=== PATIENT | male | born 1990 | race American Indian/Alaskan Native ===

== ENCOUNTER 2021-11-13 02:29 | Emergency (ER) | payer SELFPAY ==
[2021-11-13] MEDS ORDERED: levETIRAcetam 1000 MG/NS 0.75% 1,000 MG/100 ML BAG IV ONE (04:03)
--- NOTE | 2021-11-13 04:03 | Emergency Department Report ---
ED General Adult HPI - General Chief complaint: Syncope Stated complaint: SYNCOPE EPISODE Source: patient, EMS Mode of arrival: Stretcher Limitations: No Limitations - History of Present Illness Initial comments: Patient is a 31-year-old male with possible past medical history of seizure who presents to the emergency department after a syncopal or seizure episode. Patient states that he felt like he was can have a seizure and then had 1. Patient reports that he is does not currently take any medication for seizure but has had multiple seizures in the past. Apparently also possibly has sleep apnea but states he has not had a sleep study test checked for it. Patient's o xygen levels are low but states that he does not feel short of breath or chest pain at this time. Severity scale (0 -10): 0 - Related Data Previous Rx's Medication Instructions Recorded Last Taken Type levETIRAcetam [Keppra TAB] 500 mg PO BID 30 Days #60 tablet 11/13/21 Unknown Rx Allergies Allergy/AdvReac Type Severity Reaction Status Date / Time No Known Allergies Allergy Unverified 11/13/21 03:47 ED Review of Systems ROS: Stated complaint: SYNCOPE EPISODE Other details as noted in HPI Constitutional: denies: chills, fever Eyes: denies: eye pain, eye discharge, vision change ENT: denies: ear pain, throat pain Respiratory: denies: cough, shortness of breath, wheezing Cardiovascular: denies: chest pain, palpitations Endocrine: no symptoms reported Gastrointestinal: denies: abdominal pain, nausea, diarrhea Genitourinary: denies: urgency, dysuria Musculoskeletal: denies: back pain, joint swelling, arthralgia Skin: denies: rash, lesions Neurological: denies: headache, weakness, paresthesias Psychiatric: denies: anxiety, depression Hematological/Lymphatic: denies: easy bleeding, easy bruising ED Past Medical Hx - Past Medical History Hx Seizures: Yes (recently diagnosed (09/2021)) Hx Asthma: Yes - Social History Smoking Status: Unknown if ever smoked - Medications Home Medications: Home Medications Medication Instructions Recorded Confirmed Last Taken Type levETIRAcetam [Keppra TAB] 500 mg PO BID 30 Days #60 tablet 11/13/21 Unknown Rx ED Physical Exam - General Limitations: No Limitations General appearance: alert, in distress - Head Head exam: Present: atraumatic, normocephalic - Eye Eye exam: Present: normal appearance - ENT ENT exam: Present: mucous membranes dry - Neck Neck exam: Present: normal inspection - Respiratory Respiratory exam: Present: normal lung sounds bilaterally. Absent: respiratory distress - Cardiovascular Cardiovascular Exam: Present: tachycardia. Absent: systolic murmur, diastolic murmur, rubs, gallop - GI/Abdominal GI/Abdominal exam: Present: soft, normal bowel sounds. Absent: distended, tenderness - Rectal Rectal exam: Present: deferred - Extremities Exam Extremities exam: Present: normal inspection, pedal edema - Back Exam Back exam: Present: normal inspection - Neurological Exam Neurological exam: Present: alert, oriented X3 - Psychiatric Psychiatric exam: Present: normal affect, normal mood - Skin Skin exam: Present: warm, dry, intact, normal color. Absent: rash ED Course Vital Signs 11/13/21 11/13/21 11/13/21 02:39 02:44 02:46 Temperature 98.6 F Pulse Rate 94 H 107 H 111 H Respiratory 15 20 24 Rate Blood Pressure 146/89 146/89 Blood Pressure 138/77 [Right] O2 Sat by Pulse 90 95 94 Oximetry 11/13/21 11/13/21 11/13/21 02:51 03:00 03:16 Temperature Pulse Rate 103 H 97 H Respiratory 20 34 H 35 H Rate Blood Pressure 138/77 117/76 Blood Pressure [Right] O2 Sat by Pulse 95 93 92 Oximetry 11/13/21 11/13/21 11/13/21 03:30 03:46 04:00 Temperature Pulse Rate 107 H 94 H 91 H Respiratory 14 17 29 H Rate Blood Pressure 117/76 150/75 150/75 Blood Pressure [Right] O2 Sat by Pulse 98 98 91 Oximetry 11/13/21 04:16 Temperature Pulse Rate 95 H Respiratory 24 Rate Blood Pressure 117/76 Blood Pressure [Right] O2 Sat by Pulse 96 Oximetry - Reevaluation(s) Reevaluation #1: 11/13/21 05:35 CT imaging is negative. Patient likely to be discharged home with Keppra prescriptions. On reassessment patient is still fairly sleepy. Patient may need to wake up a little bit more prior to discharge. Will likely sign out to oncoming provider. ED Medical Decision Making - Lab Data Result diagrams: 11/13/21 03:47 11/13/21 03:47 - Radiology Data Radiology results: report reviewed, image reviewed - Medical Decision Making Patient is a 31-year-old male presenting to the emergency department complaint of possible seizure. Also on the differential includes syncopal episode. Patient states he has had multiple episodes of seizures but is not currently on meds so we will give a dose of Keppra obtain imaging of the brain as he has not previously had any imaging. Given his elevated heart rate and low oxygen levels a CTA of the chest was also obtained to rule out pulmonary embolism and syncope. Pending work-up patient may require admission if her oxygen levels remain low. Critical care attestation.: If time is entered above; I have spent that time in minutes in the direct care of this critically ill patient, excluding procedure time. ED Disposition Clinical Impression: Seizure, Sleep apnea Condition: Stable Instructions: Sleep Apnea, Seizure, Adult, [id number] Prescriptions: levETIRAcetam [Keppra TAB] 500 mg PO BID 30 Days #60 tablet Referrals: PRIMARY CARE, [Primary Care Provider] - 3-5 Days LUIS MANUEL NUNO MD [Staff Physician] - 3-5 Days MARIEL BE MD [Referring] - 3-5 Days
--- NOTE | 2021-11-13 04:04 | XRay Report ---
CHEST 1 VIEW INDICATION / CLINICAL INFORMATION: dyspnea. COMPARISON: None available. FINDINGS: SUPPORT DEVICES: None. HEART / MEDIASTINUM: Borderline to mild cardiomegaly. LUNGS / PLEURA: Lungs are clear for degree of inspiration and technique utilized. BONES: No significant osseous abnormality. ADDITIONAL FINDINGS: No significant additional findings. IMPRESSION: 1. No active cardiopulmonary disease. Signer Name: Eleno Sosa II, MD Signed: 11/13/2021 3:59 AM Workstation Name: [id number]
[2021-11-13 04:06] LABS: Basophils % (Auto) 0.5 % (0.0-1.8); Eosinophils # (Auto) 0.1 K/mm3 (0.0-0.4); Eosinophils % (Auto) 1.6 % (0.0-4.3); Hematocrit 49.8 % (35.5-45.6); Hemoglobin 15.9 gm/dl (11.8-15.2); Lymphocytes # (Auto) 1.7 K/mm3 (1.2-5.4); Lymphocytes % (Auto) 21.7 % (13.4-35.0); Mean Corpuscular HGB Conc 32 % (32-34); Mean Corpuscular Volume 86 fl (84-94); Monocytes # (Auto) 0.6 K/mm3 (0.0-0.8); Monocytes % (Auto) 7.9 % (0.0-7.3); Platelet Count 319 K/mm3 (140-440); Red Blood Count 5.81 M/mm3 (3.65-5.03); Red Cell Distribution Width 15.2 % (13.2-15.2)
[2021-11-13 04:21] LABS: Alanine Aminotransferase 27 units/L (7-56); BUN/Creatinine Ratio 10; Blood Urea Nitrogen 10 mg/dL (9-20); Calcium 9.8 mg/dL (8.4-10.2); Hemolysis Index 12
--- NOTE | 2021-11-13 05:26 | Cat Scan Report ---
CTA CHEST WITH CONTRAST INDICATION / CLINICAL INFORMATION: eval for PE; hypoxia; tachycardia. TECHNIQUE: Axial CT images were obtained through the chest after injection of IV contrast. 3 plane GA P and/or 3D reconstructions were produced. All CT scans at this location are performed using CT dose reduction for ALARA by means of automated exposure control. COMPARISON: CT head same date FINDINGS: VASCULAR FINDINGS: PULMONARY ARTERY: Pulmonary artery is normal in size. No filling defects are present compatible with pulmonary artery embolus.. THORACIC AORTA: No significant abnormality. CORONARY ARTERY CALCIFICATION: Absent -- None. NONVASCULAR FINDINGS: LOWER NECK: Soft tissues and musculature of the lower neck demonstrate no significant abnormality. Th e thyroid demonstrates no significant abnormality. HEART: No significant abnormality. MEDIASTINUM / MARY: No significant abnormality. ESOPHAGUS: No significant abnormality. LYMPH NODES: No adenopathy within the axilla, mediastinum, or mary. LUNGS: No acute air space or interstitial disease. PLEURA: No pleural effusion. No pneumothorax. THORACIC SOFT TISSUES: No significant abnormality of the chest wall or upper thoracic musculature. BONES: No significant skeletal abnormalities. ADDITIONAL CHEST FINDINGS: None. UPPER ABDOMEN: No acute findings within the upper abdomen. IMPRESSION: 1. No CT evidence for pulmonary embolism. 2. No acute intrathoracic findings. Signer Name: Eleno Sosa II, MD Signed: 11/13/2021 5:21 AM Workstation Name: [id number]
--- NOTE | 2021-11-13 05:26 | Cat Scan Report ---
CT HEAD WITHOUT CONTRAST INDICATION / CLINICAL INFORMATION: seizure. TECHNIQUE: CT head was performed without administration of intravenous contrast. All CT scans at this location are performed using CT dose reduction for ALARA by means of automated exposure control. COMPARISON: None available. FINDINGS: CEREBRAL HEMISPHERES: There is no evidence of large territorial infarction or significant abnormality of shah-white matter differentiation. Ventricles within normal limits. No midline shift. Basal ciste rns patent. HEMORRHAGE: None. CEREBELLUM / BRAINSTEM: No significant abnormality. ORBITS: No significant abnormality. SOFT TISSUES: No significant abnormality. SKULL: No significant abnormality. PARANASAL SINUSES / MASTOID AIR CELLS: Normal as visualized. ADDITIONAL FINDINGS: None. IMPRESSION: 1. No acute intracranial abnormality. Signer Name: Eleno Sosa II, MD Signed: 11/13/2021 5:21 AM Workstation Name: [id number]
[2021-11-13 06:12] VITALS: BP 150/75
--- NOTE | 2021-11-13 10:08 | Electrocardiograph Report ---
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
== END 2021-11-13 07:56 | disposition home or self-care (01) ==
LOC: ED 02:29
DX: R56.9 Unspecified convulsions (principal); G47.30 Sleep apnea, unspecified; J45.909 Unspecified asthma, uncomplicated
CPT/HCPCS: 36415; 70450; 71045; 71275; 80053; 83735; 83880; 84484; 85025; 85379; 93005; 96374; 99285; J1953; Q9967

== ENCOUNTER 2021-12-27 10:29 | Emergency (ER) | payer SELFPAY ==
[2021-12-27] MEDS ORDERED: MORPHINE 4 MG/1 ML INJ IV ONE (10:36)
[2021-12-27] MEDS ORDERED: ONDANSETRON 4 MG/2 ML INJ IV ONE (10:37)
[2021-12-27 11:51] LABS: Basophils % (Auto) 0.7 % (0.0-1.8); Eosinophils # (Auto) 0.1 K/mm3 (0.0-0.4); Eosinophils % (Auto) 0.9 % (0.0-4.3); Hematocrit 51.5 % (35.5-45.6); Hemoglobin 16.7 gm/dl (11.8-15.2); Lymphocytes # (Auto) 1.4 K/mm3 (1.2-5.4); Mean Corpuscular HGB Conc 32 % (32-34); Mean Corpuscular Volume 85 fl (84-94); Monocytes # (Auto) 0.2 K/mm3 (0.0-0.8); Monocytes % (Auto) 3.5 % (0.0-7.3); Platelet Count 268 K/mm3 (140-440); Red Cell Distribution Width 15.9 % (13.2-15.2)
--- NOTE | 2021-12-27 11:54 | Cat Scan Report ---
CTA CHEST WITH CONTRAST INDICATION / CLINICAL INFORMATION: Possible AAA. TECHNIQUE: Axial CT images were obtained through the chest after injection of IV contrast. 3 plane MA P and/or 3D reconstructions were produced. All CT scans at this location are performed using CT dose reduction for ALARA by means of automated exposure control. COMPARISON: CTA chest 11/13/2021 FINDINGS: PULMONARY EMBOLUS: Not well evaluated due to the phase of contrast. THORACIC AORTA: No significant abnormality. HEART: No significant abnormality. CORONARY ARTERY CALCIFICATION: Absent -- None. MEDIASTINUM / MARY: No significant abnormality. PLEURA: No pleural effusion. No pneumothorax. LUNGS: No acute air space or interstitial disease. Mild bibasilar subsegmental atelectasis. ADDITIONAL FINDINGS: None. UPPER ABDOMEN: No acute findings. SKELETAL STRUCTURES: No significant osseous abnormality. IMPRESSION: 1. No thoracic aortic abnormality. 2. Please note, the abdominal aorta is not visualized on this CTA of the chest. Signer Name: Favio Granados MD Signed: 12/27/2021 11:50 AM Workstation Name: [email or web address]
[2021-12-27] MEDS ORDERED: hydrALAZINE 20 MG/1 ML INJ IV ONE (12:19)
[2021-12-27 12:28] LABS: Alanine Aminotransferase 24 units/L (7-56); Albumin 4.5 g/dL (3.9-5); BUN/Creatinine Ratio 8; Blood Urea Nitrogen 8 mg/dL (9-20); Calcium 9.5 mg/dL (8.4-10.2); Hemolysis Index 15
[2021-12-27] MEDS ORDERED: SODIUM CHLORIDE 0.9% 1000 ML 1,000 ML IV ONE (14:48)
[2021-12-27] MEDS ORDERED: HYDROmorphone 1 MG/1 ML INJ IV ONE (14:48)
--- NOTE | 2021-12-27 14:49 | Emergency Department Report ---
<CRAMEYA DANIELLE - Last Filed: 12/27/21 21:56> ED Chest Pain HPI - General Chief Complaint: Chest Pain Stated Complaint: ABD PAIN Time Seen by Provider: 12/27/21 10:34 - Related Data Previous Rx's Medication Instructions Recorded Last Taken Type Valsartan [Diovan] 160 mg PO BID 30 Days #60 tablet 12/27/21 Unknown Rx amLODIPine 10 mg PO DAILY #30 tab 12/27/21 Unknown Rx carvediloL [Coreg] 12.5 mg PO BID #60 tablet 12/27/21 Unknown Rx levETIRAcetam [Keppra TAB] 750 mg PO BID 30 Days #60 tablet 12/27/21 Unknown Rx Allergies Allergy/AdvReac Type Severity Reaction Status Date / Time No Known Allergies Allergy Unverified 11/13/21 03:47 ED Past Medical Hx - Medications Home Medications: Home Medications Medication Instructions Recorded Confirmed Last Taken Type Valsartan [Diovan] 160 mg PO BID 30 Days #60 tablet 12/27/21 Unknown Rx amLODIPine 10 mg PO DAILY #30 tab 12/27/21 Unknown Rx carvediloL [Coreg] 12.5 mg PO BID #60 tablet 12/27/21 Unknown Rx levETIRAcetam [Keppra TAB] 750 mg PO BID 30 Days #60 tablet 12/27/21 Unknown Rx ED Course - Reevaluation(s) Reevaluation #1: 12/27/21 15:34 CT scan chest abdomen pelvis reviewed and appreciated. Blood pressure vital signs, laboratory studies reviewed and appreciated. Endorsed to hospital physician, Dr. Le for further evaluation and management. ED Medical Decision Making - Lab Data Result diagrams: 12/27/21 11:22 12/27/21 11:22 Vital Signs 12/27/21 12/27/21 12/27/21 10:38 10:46 10:52 Pulse Rate 100 H 99 H 97 H Respiratory 22 15 18 Rate Blood Pressure 224/138 Blood Pressure 214/137 [Left] O2 Sat by Pulse 96 94 97 Oximetry 12/27/21 12/27/21 12/27/21 11:00 11:15 11:42 Pulse Rate 105 H 99 H Respiratory 31 H 11 L Rate Blood Pressure 224/138 224/138 224/138 Blood Pressure [Left] O2 Sat by Pulse 82 L 87 Oximetry 12/27/21 12/27/21 12/27/21 11:46 12:00 12:16 Pulse Rate 102 H 105 H 100 H Respiratory 19 21 27 H Rate Blood Pressure 224/138 224/138 224/138 Blood Pressure [Left] O2 Sat by Pulse 93 85 92 Oximetry 12/27/21 12/27/21 12/27/21 12:30 12:46 13:00 Pulse Rate 104 H 111 H 119 H Respiratory 27 H 33 H 30 H Rate Blood Pressure 224/138 224/138 224/138 Blood Pressure [Left] O2 Sat by Pulse 95 92 93 Oximetry 12/27/21 12/27/21 12/27/21 13:16 13:30 13:46 Pulse Rate 123 H 127 H Respiratory 35 H 28 H Rate Blood Pressure 224/138 192/129 192/129 Blood Pressure [Left] O2 Sat by Pulse 94 94 87 Oximetry 12/27/21 12/27/21 12/27/21 14:00 14:28 14:30 Pulse Rate 115 H 112 H Respiratory 19 28 H Rate Blood Pressure 192/129 165/99 175/103 Blood Pressure [Left] O2 Sat by Pulse 88 97 95 Oximetry 12/27/21 14:46 Pulse Rate 113 H Respiratory 35 H Rate Blood Pressure 152/81 Blood Pressure [Left] O2 Sat by Pulse 96 Oximetry Lab Results 12/27/21 12/27/21 Range/Units 11:22 11:22 WBC 6.8 (4.5-11.0) K/mm3 RBC 6.10 H (3.65-5.03) M/mm3 Hgb 16.7 H (11.8-15.2) gm/dl Hct 51.5 H (35.5-45.6) % MCV 85 (84-94) fl MCH 27 L (28-32) pg MCHC 32 (32-34) % RDW 15.9 H (13.2-15.2) % Plt Count 268 (140-440) K/mm3 Lymph % (Auto) 20.0 (13.4-35.0) % Cloud % (Auto) 3.5 (0.0-7.3) % Eos % (Auto) 0.9 (0.0-4.3) % Baso % (Auto) 0.7 (0.0-1.8) % Lymph # (Auto) 1.4 (1.2-5.4) K/mm3 Cloud # (Auto) 0.2 (0.0-0.8) K/mm3 Eos # (Auto) 0.1 (0.0-0.4) K/mm3 Baso # (Auto) 0.0 (0.0-0.1) K/mm3 Seg Neutrophils % 74.9 H (40.0-70.0) % Seg Neutrophils # 5.1 (1.8-7.7) K/mm3 Sodium 142 (137-145) mmol/L Potassium 4.4 (3.6-5.0) mmol/L Chloride 102.8 (98-107) mmol/L Carbon Dioxide 26 (22-30) mmol/L Anion Gap 18 mmol/L BUN 8 L (9-20) mg/dL Creatinine 1.0 (0.8-1.3) mg/dL Estimated GFR > 60 ml/min BUN/Creatinine Ratio 8 % Glucose 118 H (75-100) mg/dL Calcium 9.5 (8.4-10.2) mg/dL Total Bilirubin 0.20 (0.1-1.2) mg/dL AST 17 (5-40) units/L ALT 24 (7-56) units/L Alkaline Phosphatase 100 (35-129) units/L Troponin T < 0.010 (0.00-0.029) ng/mL Total Protein 7.2 (6.3-8.2) g/dL Albumin 4.5 (3.9-5) g/dL Albumin/Globulin Ratio 1.7 % - Radiology Data Radiology results: pending, report reviewed, image reviewed CTA CHEST WITH CONTRAST INDICATION / CLINICAL INFORMATION: Possible AAA. TECHNIQUE: Axial CT images were obtained through the chest after injection of IV contrast. 3 plane MIP and/or 3D reconstructions were produced. All CT scans at this location are performed using CT dose reduction for ALARA by means of automated exposure control. COMPARISON: CTA chest 11/13/2021 FINDINGS: PULMONARY EMBOLUS: Not well evaluated due to the phase of contrast. THORACIC AORTA: No significant abnormality. HEART: No significant abnormality. CORONARY ARTERY CALCIFICATION: Absent -- None. MEDIASTINUM / MARY: No significant abnormality. PLEURA: No pleural effusion. No pneumothorax. LUNGS: No acute air space or interstitial disease. Mild bibasilar subsegmental atelectasis. ADDITIONAL FINDINGS: None. UPPER ABDOMEN: No acute findings. SKELETAL STRUCTURES: No significant osseous abnormality. IMPRESSION: 1. No thoracic aortic abnormality. 2. Please note, the abdominal aorta is not visualized on this CTA of the chest. Signer Name: Favio Granados MD Signed: 12/27/2021 10:50 AM Workstation Name: [id number] CTA ABDOMEN AND PELVIS WITHOUT AND WITH IV CONTRAST INDICATION / CLINICAL INFORMATION: Abdominal pain, possible AAA. TECHNIQUE: Axial CT images were obtained through the abdomen and pelvis before and after after injection of IV c ontrast. 3 plane MIP / 3D reconstructions were produced. All CT scans at this location are performed using CT dose reduction for ALARA by means of automated exposure control. COMPARISON: None available. FINDINGS: The abdominal aorta is normal in size and appearance. There is narrowing of the proximal celiac artery which could represent some [id number] narrowing. The celiac is patent. SMA is patent. Renal arteries and ROBBIE are patent. Iliac arteries appear normal. Urinary bladder wall thickening. Skeletal Structures: No significant abnormality. IMPRESSION: 1. No abdominal aortic aneurysm. Possible mild narrowing of the proximal celiac artery. Signer Name: John Holman MD Signed: 12/27/2021 1:51 PM Workstation Name: [id number] ED Disposition Clinical Impression: Hypertensive urgency, Acute chest pain, Acute abdominal pain Disposition: 09 ADMITTED INPATIENT Is pt being admited?: Yes Does the pt Need Aspirin: Yes Condition: Good Instructions: Chest Pain (ED) Prescriptions: amLODIPine 10 mg PO DAILY #30 tab carvediloL [Coreg] 12.5 mg PO BID #60 tablet Valsartan [Diovan] 160 mg PO BID 30 Days #60 tablet levETIRAcetam [Keppra TAB] 750 mg PO BID 30 Days #60 tablet Referrals: TAMARA BREWER MD [Primary Care Provider] - 3-5 Days <NATALIA TORRES - Last Filed: 12/29/21 21:56> ED Chest Pain HPI - General Source: patient, EMS Mode of arrival: Stretcher Limitations: No Limitations - History of Present Illness Initial Comments: Patient is a 31-year-old male presenting to ED with complaint of sharp chest pain radiating to his abdomen and back beginning this morning at 6 AM. States he was seen at an emergency department in [place] back in May where it was recommended that he be evaluated for possible AAA however he signed out AMA. Blood pressure 238/150. Severity scale (0 -10): 3 Heart Score - HEART Score History: Slightly suspicious EKG: Non-specific Age: < 45 Risk factors: 1-2 risk factors Troponin: < normal limit HEART Score: 2 - EKG Read Time Time EKG Completed: 13:00 (Please note times are inaccurate. Unable to locate EKG.) EKG Read Time: 13:05 - Critical Actions Critical Actions: 0-3 pts:0.9-1.7%risk of adverse cardiac event.Candidate for discharge ED Review of Systems ROS: Stated complaint: ABD PAIN Other details as noted in HPI Constitutional: denies: chills, fever Respiratory: denies: cough, shortness of breath, wheezing Cardiovascular: chest pain Endocrine: no symptoms reported Gastrointestinal: abdominal pain Musculoskeletal: denies: back pain, joint swelling, arthralgia Skin: denies: rash, lesions Neurological: denies: headache, weakness, paresthesias ED Past Medical Hx - Past Medical History Hx Seizures: Yes (recently diagnosed (09/2021)) Hx Asthma: Yes - Social History Smoking Status: Never Smoker Substance Use Type: None ED Physical Exam - General Limitations: No Limitations General appearance: alert, in no apparent distress, obese - Head Head exam: Present: atraumatic, normocephalic - Respiratory Respiratory exam: Present: normal lung sounds bilaterally. Absent: respiratory distress - Cardiovascular Cardiovascular Exam: Present: regular rate, normal rhythm, normal heart sounds - GI/Abdominal GI/Abdominal exam: Present: soft, tenderness (Mild epigastric tenderness). Absent: distended, organomegaly, mass, bruit, pulsatile mass - Rectal Rectal exam: Present: deferred - Neurological Exam Neurological exam: Present: alert, oriented X3 - Psychiatric Psychiatric exam: Present: normal affect, normal mood - Skin Skin exam: Present: warm, dry, intact, normal color ED Course Vital Signs 12/27/21 12/27/21 12/27/21 10:38 10:46 10:52 Pulse Rate 100 H 99 H 97 H Respiratory 22 15 18 Rate Blood Pressure 224/138 Blood Pressure 214/137 [Left] O2 Sat by Pulse 96 94 97 Oximetry 12/27/21 12/27/21 12/27/21 11:00 11:15 11:42 Pulse Rate 105 H 99 H Respiratory 31 H 11 L Rate Blood Pressure 224/138 224/138 224/138 Blood Pressure [Left] O2 Sat by Pulse 82 L 87 Oximetry 12/27/21 12/27/21 12/27/21 11:46 12:00 12:16 Pulse Rate 102 H 105 H 100 H Respiratory 19 21 27 H Rate Blood Pressure 224/138 224/138 224/138 Blood Pressure [Left] O2 Sat by Pulse 93 85 92 Oximetry 12/27/21 12/27/21 12/27/21 12:30 12:46 13:00 Pulse Rate 104 H 111 H 119 H Respiratory 27 H 33 H 30 H Rate Blood Pressure 224/138 224/138 224/138 Blood Pressure [Left] O2 Sat by Pulse 95 92 93 Oximetry 12/27/21 12/27/21 12/27/21 13:16 13:30 13:46 Pulse Rate 123 H 127 H Respiratory 35 H 28 H Rate Blood Pressure 224/138 192/129 192/129 Blood Pressure [Left] O2 Sat by Pulse 94 94 87 Oximetry 12/27/21 12/27/21 12/27/21 14:00 14:28 14:30 Pulse Rate 115 H 112 H Respiratory 19 28 H Rate Blood Pressure 192/129 165/99 175/103 Blood Pressure [Left] O2 Sat by Pulse 88 97 95 Oximetry 12/27/21 12/27/21 12/27/21 14:46 15:00 15:16 Pulse Rate 113 H 113 H 112 H Respiratory 35 H 20 28 H Rate Blood Pressure 152/81 125/83 141/81 Blood Pressure [Left] O2 Sat by Pulse 96 95 93 Oximetry 12/27/21 12/27/21 12/27/21 15:30 15:46 16:00 Pulse Rate 110 H 112 H 112 H Respiratory 25 H 22 24 Rate Blood Pressure 150/68 136/70 137/73 Blood Pressure [Left] O2 Sat by Pulse 93 92 91 Oximetry 12/27/21 12/27/21 12/27/21 16:16 16:30 16:46 Pulse Rate 111 H 113 H 111 H Respiratory 26 H 25 H 26 H Rate Blood Pressure 134/94 143/95 145/101 Blood Pressure [Left] O2 Sat by Pulse 89 93 92 Oximetry 12/27/21 12/27/21 12/27/21 17:00 17:16 17:30 Pulse Rate 108 H 111 H 131 H Respiratory 18 19 28 H Rate Blood Pressure 129/88 117/55 111/78 Blood Pressure [Left] O2 Sat by Pulse 94 94 93 Oximetry 12/27/21 18:20 Pulse Rate 114 H Respiratory 17 Rate Blood Pressure Blood Pressure 153/94 [Left] O2 Sat by Pulse 97 Oximetry ED Medical Decision Making - Lab Data Result diagrams: 12/27/21 11:22 12/27/21 11:22 - EKG Data -: EKG Interpreted by Pr EKG shows normal: sinus rhythm, axis, intervals, QRS complexes, ST-T waves - Medical Decision Making CBC, CMP and troponin unremarkable. Patient given IV hydralazine and labetalol. Blood pressure currently 150 systolic. He still remains tachycardic in the 110s. IV fluids ordered. Morphine and Dilaudid given for pain. CTA chest negative for aneurysm or dissection. CTA abdomen read pending. Critical care attestation.: If time is entered above; I have spent that time in minutes in the direct care of this critically ill patient, excluding procedure time.
--- NOTE | 2021-12-27 14:56 | Cat Scan Report ---
CTA ABDOMEN AND PELVIS WITHOUT AND WITH IV CONTRAST INDICATION / CLINICAL INFORMATION: Abdominal pain, possible AAA. TECHNIQUE: Axial CT images were obtained through the abdomen and pelvis before and after after injection of IV c ontrast. 3 plane MIP / 3D reconstructions were produced. All CT scans at this location are performed using CT dose reduction for ALARA by means of automated exposure control. COMPARISON: None available. FINDINGS: The abdominal aorta is normal in size and appearance. There is narrowing of the proximal celiac arter y which could represent some [id number] narrowing. The celiac is patent. SMA is patent. Renal a rteries and ROBBIE are patent. Iliac arteries appear normal. Urinary bladder wall thickening. Skeletal Structures: No significant abnormality. IMPRESSION: 1. No abdominal aortic aneurysm. Possible mild narrowing of the proximal celiac artery. Signer Name: John Holman MD Signed: 12/27/2021 2:51 PM Workstation Name: [id number]
--- NOTE | 2021-12-27 18:00 | Event Note ---
Date: 12/27/21 BP controlled No chest pain Also sleep apnea Needs compliance with medicines Extensive counselling done regarding compliance and F/u with pcp and [facility] Valsartan 160 mg bid Coreg 12.5 mg po bid Amlodipine 10 mg po qd Keppra 750 mg po bid
[2021-12-27 18:20] VITALS: BP 153/94
--- NOTE | 2021-12-30 09:46 | Electrocardiograph Report ---
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
== END 2021-12-27 18:20 | disposition admitted as inpatient to this hospital (09) ==
LOC: ED 10:29
DX: I16.0 Hypertensive urgency (principal); R07.9 Chest pain, unspecified; R10.9 Unspecified abdominal pain
CPT/HCPCS: 36415; 71275; 74174; 80053; 84484; 85025; 93005; 96361; 96374; 96375; 99284; J0360; J1170; J2270; J2405; J3490; J7030; Q9967

== ENCOUNTER 2022-01-02 20:28 | Inpatient (IN) | payer SELFPAY ==
[2022-01-02] MEDS ORDERED: SODIUM CHLORIDE 0.9% 1000 ML 1,000 ML IV ONE (21:17)
[2022-01-02] MEDS ORDERED: ONDANSETRON 4 MG/2 ML INJ IV ONE (21:17)
[2022-01-02] MEDS ORDERED: MORPHINE 4 MG/1 ML INJ IV ONE (21:17)
--- NOTE | 2022-01-02 21:28 | Emergency Department Report ---
ED General Adult HPI - General Chief complaint: Abdominal Pain Stated complaint: ABD PAIN PUI?: No Time Seen by Provider: 01/02/22 21:10 Source: patient Mode of arrival: Stretcher Limitations: No Limitations - History of Present Illness Initial comments: 31 YEAR OLD OBESE MALE WITH MEDICAL HISTORY OF SEIZURE AND HYPERTENSION CAME IN TODAY WITH CONCERN OF ABDOMINAL PAIN PREDOMINATLY AT EPIGASTIC AND ALSO RIGHT UPPER QUADRANT ALONG WITH NAUSEA. STATES IT JUST STARTED TODAY AND NOTHING MAKES IT BETTER/WORSE. DENIES ANY OTHER ASSOCIATED SYMPTOMS. STATES HE WAS JUST STARTED ON BLOOD PRESSURE MEDICATION ABOUT 6 DAYS AGO BUT HAS NOT HAD THE TIME TO PICK THEM UP YET. PATIENT DENIES FEVER, CHILL, NIGHT SWEATS, DIZZINESS, LIGHTHEADED, BLURRY VISION, HEADACHE, EAR PAIN, TINNITUS, RHINORRHEA, SORE THROAT, LOSS OF TASTE/SMELL, CHEST PAIN, PALPITATION, DYSPNEA, COUGH, DIARRHEA, CONSTIPATION, DYSURIA, MYALGIA, ARTHRALGIA, NEW RASH/LESION, AND HEAT OR COLD INTOLERANCE. - Related Data Previous Rx's Medication Instructions Recorded Last Taken Type Valsartan [Diovan] 160 mg PO BID 30 Days #60 tablet 12/27/21 Unknown Rx amLODIPine 10 mg PO DAILY #30 tab 12/27/21 Unknown Rx carvediloL [Coreg] 12.5 mg PO BID #60 tablet 12/27/21 Unknown Rx levETIRAcetam [Keppra TAB] 750 mg PO BID 30 Days #60 tablet 12/27/21 Unknown Rx Allergies Allergy/AdvReac Type Severity Reaction Status Date / Time No Known Allergies Allergy Unverified 11/13/21 03:47 ED Review of Systems ROS: Stated complaint: ABD PAIN Other details as noted in HPI Comment: All other systems reviewed and negative Constitutional: no symptoms reported, see HPI Eyes: as per HPI ENT: as per HPI Respiratory: no symptoms reported Cardiovascular: as per HPI Endocrine: no symptoms reported, see HPI Gastrointestinal: abdominal pain, nausea, vomiting. denies: diarrhea, constipation, hematemesis, melena, hematochezia Musculoskeletal: as per HPI Skin: as per HPI Neurological: as per HPI Psychiatric: as per HPI Hematological/Lymphatic: as per HPI ED Past Medical Hx - Past Medical History Previous Medical History?: Yes Hx Hypertension: Yes Hx Seizures: Yes (recently diagnosed (09/2021)) Hx Asthma: Yes Additional medical history: Sleep Apnea. Morbid Obesity - Surgical History Past Surgical History?: No - Social History Smoking Status: Current Every Day Smoker Substance Use Type: None - Medications Home Medications: Home Medications Medication Instructions Recorded Confirmed Last Taken Type Valsartan [Diovan] 160 mg PO BID 30 Days #60 tablet 12/27/21 Unknown Rx amLODIPine 10 mg PO DAILY #30 tab 12/27/21 Unknown Rx carvediloL [Coreg] 12.5 mg PO BID #60 tablet 12/27/21 Unknown Rx levETIRAcetam [Keppra TAB] 750 mg PO BID 30 Days #60 tablet 12/27/21 Unknown Rx ED Physical Exam - General Limitations: No Limitations General appearance: alert, in distress (MILD; APPEARS NAUSEATED) - Head Head exam: Present: atraumatic, normocephalic, normal inspection - Eye Eye exam: Present: normal appearance, PERRL, EOMI Pupils: Present: normal accommodation - ENT ENT exam: Present: normal exam - Neck Neck exam: Present: normal inspection, full ROM - Respiratory Respiratory exam: Present: normal lung sounds bilaterally - Cardiovascular Cardiovascular Exam: Present: regular rate, normal rhythm, normal heart sounds - GI/Abdominal GI/Abdominal exam: Present: soft (OBESE), normal bowel sounds. Absent: tenderness, guarding, rebound, rigid - Extremities Exam Extremities exam: Present: normal inspection, full ROM, normal capillary refill - Back Exam Back exam: Present: normal inspection, full ROM - Neurological Exam Neurological exam: Present: alert, oriented X3, CN II-XII intact - Psychiatric Psychiatric exam: Present: normal affect, normal mood - Skin Skin exam: Present: normal color ED Course Vital Signs 01/02/22 01/02/22 01/02/22 20:29 21:54 23:55 Temperature 98 F Pulse Rate 96 H 90 90 Respiratory 20 18 Rate Blood Pressure 214/152 190/124 Blood Pressure 170/99 [Left] O2 Sat by Pulse 96 100 Oximetry 01/03/22 01:00 Temperature Pulse Rate 90 Respiratory Rate Blood Pressure 210/112 Blood Pressure [Left] O2 Sat by Pulse Oximetry - Reevaluation(s) Reevaluation #1: 01/03/22 02:[address] KATZ WHO IS AWARE OF PATIENT. SPOKE TO DR. REAL AND ACCEPTED THE PATIENT. BLOOD PRESSURE IMPROVED AND NOW AT 168/101. ANTIBIOTIC ORDERED AND NPO. ED Medical Decision Making - Lab Data Result diagrams: 01/02/22 22:03 01/02/22 22:03 Critical care attestation.: If time is entered above; I have spent that time in minutes in the direct care of this critically ill patient, excluding procedure time. ED Disposition Clinical Impression: Acute cholecystitis, Gallstone, Hepatic steatosis, Asymptomatic hypertensive urgency Disposition: ADMITTED INPATIENT Is pt being admited?: Yes Does the pt Need Aspirin: No Condition: Stable Referrals: TAMARA BREWER MD [Primary Care Provider] - 3-5 Days Time of Disposition: 02:03
[2022-01-02 21:38] LABS: Color,Urine Straw (Yellow)
[2022-01-02 21:41] LABS: Granular Casts,Urine 9 /LPF; Mucus,Urine FEW /HPF
[2022-01-02 21:49] LABS: Amphetamine Screen,Urine Negative; Benzodiazepines Screen,Urine Negative; Cannabinoid Screen,Urine Negative; Cocaine Screen,Urine Negative; Methadone Screen,Urine Negative; Opiate Screen,Urine Negative
[2022-01-02 22:18] LABS: Hematocrit 45.7 % (35.5-45.6); Hemoglobin 15.5 gm/dl (11.8-15.2); Mean Corpuscular HGB Conc 34 % (32-34); Mean Corpuscular Volume 83 fl (84-94); Platelet Count 311 K/mm3 (140-440); Red Blood Count 5.51 M/mm3 (3.65-5.03); Red Cell Distribution Width 15.9 % (13.2-15.2)
[2022-01-02 22:36] LABS: Alanine Aminotransferase 27 units/L (7-56); BUN/Creatinine Ratio 5; Blood Urea Nitrogen 5 mg/dL (9-20); Calcium 8.7 mg/dL (8.4-10.2); Hemolysis Index 831
--- NOTE | 2022-01-03 00:35 | Cat Scan Report ---
CT abdomen pelvis w con INDICATION / CLINICAL INFORMATION: RIGHT AND MID UPPER QUADRANT. TECHNIQUE: Axial CT imaging of abdomen and pelvis was obtained with 100 cc Omnipaque 350 IV contrast. Coronal an d sagittal reformatted imaging obtained and reviewed. All CT scans at this location are performed us ing CT dose reduction for ALARA by means of automated exposure control. COMPARISON: CT abdomen pelvis 12/27/2021 FINDINGS: CT abdomen with IV contrast demonstrates normal appearance of the liver, spleen, pancreas, kidneys, a nd adrenal glands. No biliary dilatation. There is a 3 mm calcification in the left mid kidney consis tent with nonobstructing calculus. The abdominal aorta is unremarkable. The gallbladder is mildly distended. There is suggestion of gallbladder wall thickening. There is marisel e mild inflammatory change just slightly inferior to the gallbladder and just lateral to the descendi ng duodenum.. CT pelvis with contrast does not demonstrate any mass, free fluid, or focal inflammatory process. A n ormal appendix is present in the right lower quadrant. Visualized lung bases are grossly clear. No acute osseous abnormality noted. IMPRESSION: 1. There is mild inflammatory process in the right upper quadrant just slightly inferior to the gallb ladder. The gallbladder is distended and there is suggestion of gallbladder wall thickening. Suggest further evaluation with gallbladder ultrasound to exclude possibility of acute cholecystitis. 2. No other significant acute finding. 3. 3 mm nonobstructing left intrarenal calculus. Signer Name: Andie Iglesias MD Signed: 01/03/2022 12:31 AM Workstation Name: [id number]
[2022-01-03] MEDS ORDERED: hydrALAZINE 20 MG/1 ML INJ IV ONE (00:45)
[2022-01-03] MEDS ORDERED: hydrALAZINE 20 MG/1 ML INJ ONE (00:46)
--- NOTE | 2022-01-03 01:46 | Ultrasound Report ---
ULTRASOUND ABDOMEN, LIMITED (RIGHT UPPER QUADRANT) INDICATION: ACUTE CHOLECYSITIS. Right upper quadrant pain with abnormal CT scan. COMPARISON: CT abdomen 01/02/2022 FINDINGS: Pancreas: The pancreas is poorly visualized due to overlying bowel gas. Liver: The liver appeared mildly echogenic suggesting mild hepatic steatosis. The liver measures 20 c m in length. No focal hepatic mass noted. Gallbladder: A single gallstone is present within the gallbladder neck measuring approximately 15 mm. There is mild gallbladder distention as well as gallbladder wall thickening. Gallbladder wall measur es approximately 6-7 mm in thickness. Bile ducts: Common bile duct not visualized. Free fluid: None. Additional Findings: None. IMPRESSION: 1. Abnormal sonographic appearance of the gallbladder. There is a 15 mm gallstone within the gallblad terrance neck. There is prominent gallbladder wall thickening. The overall appearance is consistent with a cute cholecystitis. CBD not identified. 2. Findings suggestive of mild hepatic steatosis. Signer Name: Andie Iglesias MD Signed: 01/03/2022 1:42 AM Workstation Name: [id number]
[2022-01-03] MEDS ORDERED: PIPERACILLIN/TAZOBACTAM 3.375 3.375 GM/50 ML BAG IV ONE ×2 (02:01→05:00)
[2022-01-03] MEDS ORDERED: SODIUM CHLORIDE 0.9% 1000 ML 1,000 ML IV ONE (02:02)
[2022-01-03] MEDS ORDERED: MORPHINE 2 MG/1 ML INJ IV PRN (02:52)
[2022-01-03] MEDS ORDERED: ONDANSETRON 4 MG/2 ML INJ IV PRN (02:52)
[2022-01-03] MEDS ORDERED: ACETAMINOPHEN 325 MG TAB PO PRN (02:52)
[2022-01-03] MEDS ORDERED: MAGNESIUM HYDROXIDE (MOM) ORAL LIQD UDC PO PRN (02:52)
[2022-01-03] MEDS ORDERED: SODIUM CHLORIDE 0.9% 1000 ML 1,000 ML IV SCH (03:00)
--- NOTE | 2022-01-03 04:07 | History and Physical Report ---
History of Present Illness Date of examination: 01/03/22 Date of admission: 01/03/22 02:52 Chief complaint: Abdominal Pain History of present illness: 31-year-old -[place] male with past medical history of seizure disorder and hypertension presents to the emergency room today complaining of abdominal pain. Abdominal pain is more in the epigastric region and also in the right upper abdomen. He has had some associated nausea and vomiting but denies any d iarrhea. Patient denies any fever or chills, denies any headache or dizziness and denies any diaphoresis. He denies any sick contacts and no recent travel. There is no known relieving or exacerbating factor for his abdominal pain. He indicates he had just been started on the blood pressure medication few days ago but he has no picked it up from the pharmacy. Upon arrival in the emergency room today, blood pressure was quite elevated with systolic in the 200s and diastolic in the low 100s. He had a dose of labetalol and subsequently IV hydralazine with some improvement in his blood pressure. Work-up in the emergency room today, CT abdomen and pelvis/ultrasound of the abdomen was consistent with acute cholecystitis. General surgeon on-call has been consulted by the ER physician. Past History Past Medical History: hypertension, seizures, other (Asthma,Sleep Apnea. Morbid Obesity) Social history: smoking (Current Every Day Smoker) Family history: no significant family history Medications and Allergies Allergies Allergy/AdvReac Type Severity Reaction Status Date / Time No Known Allergies Allergy Unverified 11/13/21 03:47 Home Medications Medication Instructions Recorded Confirmed Last Taken Type Valsartan [Diovan] 160 mg PO BID 30 Days #60 tablet 12/27/21 Unknown Rx amLODIPine 10 mg PO DAILY #30 tab 12/27/21 Unknown Rx carvediloL [Coreg] 12.5 mg PO BID #60 tablet 12/27/21 Unknown Rx levETIRAcetam [Keppra TAB] 750 mg PO BID 30 Days #60 tablet 12/27/21 Unknown Rx Active Meds: Active Medications Acetaminophen (Acetaminophen 325 Mg Tab) 650 mg PO Q4H PRN PRN Reason: Pain MILD(1-3)/Fever >100.5/APONTE Sodium Chloride (Nacl 0.9% 1000 Ml) 1,000 mls @ 75 mls/hr IV DIRECT ALAN Piperacillin Sod/Tazobactam Sod (Zosyn/Ns 3.375gm/50ml) 3.375 gm in 50 mls @ 100 mls/hr IV Q8H ALAN; Protocol Magnesium Hydroxide (Magnesium Hydroxide (Mom) Oral Liqd Udc) 30 ml PO Q4H PRN PRN Reason: Constipation Morphine Sulfate (Morphine 2 Mg/1 Ml Inj) 2 mg IV Q4H PRN PRN Reason: Pain, Moderate (4-6) Morphine Sulfate (Morphine 4 Mg/1 Ml Inj) 4 mg IV Q4H PRN PRN Reason: Pain , Severe (7-10) Ondansetron HCl (Ondansetron 4 Mg/2 Ml Inj) 4 mg IV Q8H PRN PRN Reason: Nausea And Vomiting Sodium Chloride (Sodium Chloride 0.9% 10 Ml Flush Syringe) 10 ml IV BID ALAN Sodium Chloride (Sodium Chloride 0.9% 10 Ml Flush Syringe) 10 ml IV PRN PRN PRN Reason: LINE FLUSH Review of Systems Constitutional: no fever, no chills Ears, nose, mouth and throat: no nasal congestion, no sore throat Cardiovascular: no chest pain, no palpitations Respiratory: no cough, no shortness of breath Gastrointestinal: abdominal pain, nausea, vomiting, no diarrhea Genitourinary Male: no dysuria, no hematuria, no flank pain Musculoskeletal: no neck pain, no low back pain Integumentary: no rash, no pruritis Neurological: no headaches, no confusion Psychiatric: no anxiety, no depression Endocrine: no polyphagia, no polydipsia, no polyuria, no nocturia Exam - Constitutional Vitals: Temp Pulse Resp BP Pulse Ox 98 F 90 18 210/112 100 01/02/22 20:29 01/03/22 01:00 01/02/22 23:55 01/03/22 01:00 01/02/22 23:55 General appearance: Present: no acute distress, well-nourished, obese - EENT Eyes: Present: PERRL, EOM intact. Absent: scleral icterus ENT: hearing intact, clear oral mucosa, dentition normal - Neck Neck: Present: supple, normal ROM - Respiratory Respiratory effort: normal Respiratory: bilateral: CTA - Cardiovascular Rhythm: regular Heart Sounds: Present: S1 & S2. Absent: gallop, systolic murmur, diastolic murmur, rub, click - Extremities Extremities: no ischemia, pulses intact, No edema, normal temperature, normal color, Full ROM Peripheral Pulses: within normal limits - Abdominal General gastrointestinal: Present: soft, tender (Moderate right upper quadrant tenderness, no guarding and no rebound tenderness), non-distended, normal bowel sounds. Absent: mass - Integumentary Integumentary: Present: clear, warm, dry, normal turgor. Absent: rash - Musculoskeletal Musculoskeletal: strength equal bilaterally - Psychiatric Psychiatric: appropriate mood/affect, intact judgment & insight, memory intact, cooperative - Neurologic Neurologic: CNII-XII intact, no focal deficits, moves all extremities HEART Score - HEART Score Troponin: Troponin T < 0.010 ng/mL (0.00-0.029) 01/03/22 00:56 Results - Labs CBC & Chem 7: 01/02/22 22:03 01/02/22 22:03 Labs: Abnormal lab results 01/02/22 01/02/22 01/02/22 Range/Units 22:03 22:03 22:03 RBC 5.51 H (3.65-5.03) M/mm3 Hgb 15.5 H (11.8-15.2) gm/dl Hct 45.7 H (35.5-45.6) % MCV 83 L (84-94) fl RDW 15.9 H (13.2-15.2) % BUN 5 L (9-20) mg/dL Glucose 115 H (75-100) mg/dL Lactic Acid 2.60 H* (0.7-2.0) mmol/L AST 62 H (5-40) units/L 01/03/22 Range/Units 00:56 RBC (3.65-5.03) M/mm3 Hgb (11.8-15.2) gm/dl Hct (35.5-45.6) % MCV (84-94) fl RDW (13.2-15.2) % BUN (9-20) mg/dL Glucose (75-100) mg/dL Lactic Acid 2.20 H* (0.7-2.0) mmol/L AST (5-40) units/L Assessment and Plan Assessment: 1. Acute appendicitis 2. Morbid obesity 3. History of seizure disorder 4. History of sleep apnea Plan: 1. Patient admitted to the medical floor. We will make n.p.o. 2. We will commence on empiric IV antibiotics and analgesic medication. 3. General surgeon on-call has been consulted by the ER physician. DVT Prophylaxis: Sequential compression device Code Status: Full code
[2022-01-03] MEDS ORDERED: hydrALAZINE 20 MG/1 ML INJ IV PRN (04:13)
--- NOTE | 2022-01-03 08:52 | Consultation ---
History of Present Illness Consult date: 01/03/22 Reason for consult: abdominal pain - History of present illness History of present illness: 31-year-old -Burkin[place] male with past medical history of seizure disorder and hypertension presents to the emergency room today complaining of abdominal pain. Abdominal pain is more in the epigastric region and also in the right upp er abdomen. He has had some associated nausea and vomiting but denies any diarrhea. Patient denies any fever or chills, denies any headache or dizziness and denies any diaphoresis. There is no known relieving or exacerbating factor for his abdominal pain. He indicates he had just been started on the blood pressure medication few days ago but he has no picked it up from the pharmacy. Upon arrival in the emergency room today, blood pressure was quite elevated with systolic in the 200s and diastolic in the low 100s. He had a dose of labetalol and subsequently IV hydralazine with some improvement in his blood pressure. Work-up in the emergency room today, CT abdomen and pelvis/ultrasound of the abdomen was consistent with acute cholecystitis. Patient notes resolution of pain this morning. We will advance to clear liquid diet. Continue observation, continue to treat patient's elevated blood pressure. We will call the lab to investigate potassium level that is "too numerous to count." Past History Past Medical History: hypertension, seizures, other (Asthma,Sleep Apnea. Morbid Obesity) Social history: smoking (Current Every Day Smoker) Family history: no significant family history Medications and Allergies Allergies Allergy/AdvReac Type Severity Reaction Status Date / Time No Known Allergies Allergy Unverified 11/13/21 03:47 Home Medications Medication Instructions Recorded Confirmed Last Taken Type Valsartan [Diovan] 160 mg PO BID 30 Days #60 tablet 12/27/21 Unknown Rx amLODIPine 10 mg PO DAILY #30 tab 12/27/21 Unknown Rx carvediloL [Coreg] 12.5 mg PO BID #60 tablet 12/27/21 Unknown Rx levETIRAcetam [Keppra TAB] 750 mg PO BID 30 Days #60 tablet 12/27/21 Unknown Rx Active Meds: Active Medications Acetaminophen (Acetaminophen 325 Mg Tab) 650 mg PO Q4H PRN PRN Reason: Pain MILD(1-3)/Fever >100.5/APONTE Hydralazine HCl (Hydralazine 20 Mg/1 Ml Inj) 10 mg IV Q4H PRN PRN Reason: Blood Pressure Sodium Chloride (Nacl 0.9% 1000 Ml) 1,000 mls @ 75 mls/hr IV DIRECT ALAN Last Admin: 01/03/22 07:00 Dose: 100 mls/hr Piperacillin Sod/Tazobactam Sod (Zosyn/Ns 3.375gm/50ml) 3.375 gm in 50 mls @ 100 mls/hr IV Q8H ALAN; Protocol Magnesium Hydroxide (Magnesium Hydroxide (Mom) Oral Liqd Udc) 30 ml PO Q4H PRN PRN Reason: Constipation Morphine Sulfate (Morphine 2 Mg/1 Ml Inj) 2 mg IV Q4H PRN PRN Reason: Pain, Moderate (4-6) Morphine Sulfate (Morphine 4 Mg/1 Ml Inj) 4 mg IV Q4H PRN PRN Reason: Pain , Severe (7-10) Ondansetron HCl (Ondansetron 4 Mg/2 Ml Inj) 4 mg IV Q8H PRN PRN Reason: Nausea And Vomiting Sodium Chloride (Sodium Chloride 0.9% 10 Ml Flush Syringe) 10 ml IV BID ALAN Sodium Chloride (Sodium Chloride 0.9% 10 Ml Flush Syringe) 10 ml IV PRN PRN PRN Reason: LINE FLUSH Last Admin: 01/03/22 06:20 Dose: 10 ml Exam Vital Signs Temp Pulse Resp BP Pulse Ox 98 F 96 H 20 214/152 96 01/02/22 20:29 01/02/22 20:29 01/02/22 20:29 01/02/22 20:29 01/02/22 20:29 - General physical appearance Positive: well developed, other (Base BMI 51) - Eyes Positive: PERRL - Neck Positive: no masses, no bruits, trachea midline - Cardiovascular Rhythm: regular - Extremities Extremities: no ischemia, No edema - Abdomen Abdomen: Present: soft, tender, bowel sounds normal. Absent: distended, masses, rebound - Neurologic Neurologic: alert and oriented to time, place and person, motor strength and sensation are grossly intact, CN II-XII intact Results - Labs 01/02/22 22:03 01/02/22 22:03 Abnormal lab results 01/02/22 01/02/22 01/02/22 Range/Units 22:03 22:03 22:03 RBC 5.51 H (3.65-5.03) M/mm3 Hgb 15.5 H (11.8-15.2) gm/dl Hct 45.7 H (35.5-45.6) % MCV 83 L (84-94) fl RDW 15.9 H (13.2-15.2) % BUN 5 L (9-20) mg/dL Glucose 115 H (75-100) mg/dL Lactic Acid 2.60 H* (0.7-2.0) mmol/L AST 62 H (5-40) units/L 01/03/22 01/03/22 01/03/22 Range/Units 00:56 05:33 07:57 RBC (3.65-5.03) M/mm3 Hgb (11.8-15.2) gm/dl Hct (35.5-45.6) % MCV (84-94) fl RDW (13.2-15.2) % BUN (9-20) mg/dL Glucose (75-100) mg/dL Lactic Acid 2.20 H* 2.70 H* 2.50 H* (0.7-2.0) mmol/L AST (5-40) units/L Diabetes panel 01/02/22 Range/Units 22:03 Sodium 137 (137-145) mmol/L Potassium TNR Chloride 100.5 (98-107) mmol/L Carbon Dioxide 26 (22-30) mmol/L BUN 5 L (9-20) mg/dL Creatinine 1.0 (0.8-1.3) mg/dL Glucose 115 H (75-100) mg/dL Calcium 8.7 (8.4-10.2) mg/dL AST 62 H (5-40) units/L ALT 27 (7-56) units/L Alkaline Phosphatase 70 (35-129) units/L Total Protein 7.4 (6.3-8.2) g/dL Albumin 4.0 (3.9-5) g/dL Calcium panel 01/02/22 Range/Units 22:03 Calcium 8.7 (8.4-10.2) mg/dL Albumin 4.0 (3.9-5) g/dL Pituitary panel 01/02/22 Range/Units 22:03 Sodium 137 (137-145) mmol/L Potassium TNR Chloride 100.5 (98-107) mmol/L Carbon Dioxide 26 (22-30) mmol/L BUN 5 L (9-20) mg/dL Creatinine 1.0 (0.8-1.3) mg/dL Glucose 115 H (75-100) mg/dL Calcium 8.7 (8.4-10.2) mg/dL Adrenal panel 01/02/22 Range/Units 22:03 Sodium 137 (137-145) mmol/L Potassium TNR Chloride 100.5 (98-107) mmol/L Carbon Dioxide 26 (22-30) mmol/L BUN 5 L (9-20) mg/dL Creatinine 1.0 (0.8-1.3) mg/dL Glucose 115 H (75-100) mg/dL Calcium 8.7 (8.4-10.2) mg/dL Total Bilirubin 0.30 (0.1-1.2) mg/dL AST 62 H (5-40) units/L ALT 27 (7-56) units/L Alkaline Phosphatase 70 (35-129) units/L Total Protein 7.4 (6.3-8.2) g/dL Albumin 4.0 (3.9-5) g/dL Assessment and Plan 31-year-old -[place] male with past medical history of seizure disorder and hypertension presents to the emergency room today complaining of abdominal pain. Abdominal pain is more in the epigastric region and also in the right upper abdomen. He has had some associated nausea and vomiting but denies any diarrhea. Patient denies any fever or chills, denies any headache or dizziness and denies any diaphoresis. There is no known relieving or exacerbating factor for his abdominal pain. He indicates he had just been started on the blood pressure medication few days ago but he has no picked it up from the pharmacy. Upon arrival in the emergency room today, blood pressure was quite elevated with systolic in the 200s and diastolic in the low 100s. He had a dose of labetalol and subsequently IV hydralazine with some improvement in his blood pressure. Work-up in the emergency room today, CT abdomen and pelvis/ultrasound of the abdomen was consistent with acute cholecystitis. Patient notes resolution of pain this morning. We will advance to clear liquid diet. Continue observation, continue to treat patient's elevated blood pressure. We will call the lab to investigate potassium level that is "too numerous to count."
[2022-01-03] MEDS ORDERED: cloNIDine TTS 0.2 MG/24 HR PATCH TD SCH (10:00)
[2022-01-03] MEDS: D5W/0.9% NACL 1,000 ML IV SCH ×2 (10:31→21:19)
[2022-01-03] MEDS: PIPERACILLIN/TAZOBACTAM 3.375 3.375 GM/50 ML BAG IV SCH ×2 (10:57→17:48)
--- NOTE | 2022-01-03 11:34 | Progress Note ---
Assessment and Plan 31-year-old -[place] male with past medical history of seizure disorder, morbid obesity, sleep apnea and hypertension presents to the emergency room with complaining of abdominal pain. Upon arrival in the emergency room blood pressure was quite elevated with systolic in the 200s and diastolic in the low 100s. CT abdomen and pelvis/ultrasound of the abdomen was consistent with acute cholecystitis. General surgeon on-call has been consulted by the ER physician and patient was admitted for further Mx. 11/02: General surgery consulted, continue empiric antibiotics and IV fluid hydration. Placed on clonidine and IV hydralazine for BP control. Start on clear liquid diet, surgery being planned for next week once BP stabilized. Assessment and plan: -- Acute cholecystitis General surgeon consulted,, ordered abdominal ultrasound No plan for immediate surgery now may be next week Wednesday or Wednesday Initiate clear liquid diet, empiric antibiotics and IV fluid hydration -- Morbid obesity, need diet and exercise education on discharge when clinically stable -- History of seizure disorder, will resume home antiseizure medicine -- History of sleep apnea, CPAP at bedtime as needed, need sleep study as outpatient --Malignant/uncontrolled hypertension, placed on clonidine patch and IV hydralazine. Monitor BP -- Elevated lactic acid, due to acute cholecystitis and dehydration. Continue IV fluid hydration and trend lactic acid -- DVT Prophylaxis: Sequential compression device -- Code Status: Full code Subjective Date of service: 01/03/22 Interval history: Patient seen and examined. Medical records and medication list reviewed. No acute event overnight noted by the RN. Patient complains of abdominal pain but much improved than admission Plan for surgery probably next week Wednesday or Wednesday Discussed plan of care at bedside with patient. Objective - Exam Narrative Exam: GENERAL: well-developed and morbidly obese -[place] male lying on bed appeared to be in no discomfort. HEENT: Normocephalic. Atraumatic. No conjunctival congestion or icterus. Patient has moist mucous membranes. NECK: Supple. Trachea midline. CHEST/LUNGS: Clear to auscultated bilaterally, breathing nonlabored. No wheezes crackles or rhonchi. HEART/CARDIOVASCULAR: Regular in rate and rhythm. S1 and S2 positive. ABDOMEN: Abdomen is soft, mild right upper quadrant tenderness. Patient has normal bowel sounds. SKIN: There is no rash. Warm and dry. NEURO: No focal motor deficit. Follows command. MUSCULOSKELETAL: No joint effusion or tenderness. EXTRIMITY: No edema, no cyanosis or clubbing. PSYCH: Cooperative. - Constitutional Vitals: Vital Signs - 12hr 01/02/22 01/03/22 01/03/22 23:55 01:00 02:53 Temperature Pulse Rate 90 90 Pulse Rate [ Apical] Respiratory 18 Rate Blood Pressure 210/112 Blood Pressure 170/99 [Left] O2 Sat by Pulse 100 100 Oximetry 01/03/22 01/03/22 01/03/22 03:00 06:00 06:20 Temperature 99.3 F Pulse Rate 86 122 H Pulse Rate [ 122 H Apical] Respiratory 20 18 Rate Blood Pressure 166/117 Blood Pressure 168/100 [Left] O2 Sat by Pulse 100 93 93 Oximetry 01/03/22 07:05 Temperature Pulse Rate 108 H Pulse Rate [ Apical] Respiratory 18 Rate Blood Pressure 155/98 Blood Pressure [Left] O2 Sat by Pulse 94 Oximetry - Labs CBC & Chem 7: 01/04/22 05:59 01/04/22 05:59 Labs: Abnormal lab results 01/02/22 01/02/22 01/02/22 Range/Units 22:03 22:03 22:03 RBC 5.51 H (3.65-5.03) M/mm3 Hgb 15.5 H (11.8-15.2) gm/dl Hct 45.7 H (35.5-45.6) % MCV 83 L (84-94) fl RDW 15.9 H (13.2-15.2) % BUN 5 L (9-20) mg/dL Glucose 115 H (75-100) mg/dL Lactic Acid 2.60 H* (0.7-2.0) mmol/L AST 62 H (5-40) units/L 01/03/22 01/03/22 01/03/22 Range/Units 00:56 05:33 07:57 RBC (3.65-5.03) M/mm3 Hgb (11.8-15.2) gm/dl Hct (35.5-45.6) % MCV (84-94) fl RDW (13.2-15.2) % BUN (9-20) mg/dL Glucose (75-100) mg/dL Lactic Acid 2.20 H* 2.70 H* 2.50 H* (0.7-2.0) mmol/L AST (5-40) units/L HEART Score - HEART Score Troponin: Troponin T < 0.010 ng/mL (0.00-0.029) 01/03/22 00:56
[2022-01-03] MEDS: MORPHINE 4 MG/1 ML INJ IV PRN ×2 (12:28→21:16)
[2022-01-04] MEDS: MORPHINE 4 MG/1 ML INJ IV PRN ×4 (02:04→22:24)
[2022-01-04] MEDS: PIPERACILLIN/TAZOBACTAM 3.375 3.375 GM/50 ML BAG IV SCH ×3 (02:06→17:03)
[2022-01-04 07:34] LABS: Basophils % (Auto) 0.2 % (0.0-1.8); Eosinophils # (Auto) 0.1 K/mm3 (0.0-0.4); Eosinophils % (Auto) 1.2 % (0.0-4.3); Hematocrit 45.8 % (35.5-45.6); Hemoglobin 14.6 gm/dl (11.8-15.2); Lymphocytes # (Auto) 1.9 K/mm3 (1.2-5.4); Lymphocytes % (Auto) 16.1 % (13.4-35.0); Mean Corpuscular HGB Conc 32 % (32-34); Mean Corpuscular Volume 85 fl (84-94); Monocytes # (Auto) 1.2 K/mm3 (0.0-0.8); Monocytes % (Auto) 10.1 % (0.0-7.3); Platelet Count 283 K/mm3 (140-440); Red Cell Distribution Width 16.2 % (13.2-15.2)
[2022-01-04 07:48] LABS: BUN/Creatinine Ratio 9; Blood Urea Nitrogen 7 mg/dL (9-20); Calcium 9.2 mg/dL (8.4-10.2); Hemolysis Index 1
[2022-01-04] MEDS: amLODIPine 10 MG TAB PO SCH (09:55)
--- NOTE | 2022-01-04 10:46 | Progress Note ---
Assessment and Plan 31-year-old -[place] male with past medical history of seizure disorder, morbid obesity, sleep apnea and hypertension presents to the emergency room with complaining of abdominal pain. Upon arrival in the emergency room blood pressure was quite elevated with systolic in the 200s and diastolic in the low 100s. CT abdomen and pelvis/ultrasound of the abdomen was consistent with acute cholecystitis. General surgeon on-call has been consulted by the ER physician and patient was admitted for further Mx. 11/02: General surgery consulted, continue empiric antibiotics and IV fluid hydration. Placed on clonidine and IV hydralazine for BP control. Start on clear liquid diet, surgery being planned for next week once BP stabilized. 11/03: Continue medical management, plan for surgery tomorrow, continue IV fluid hydration and antibiotics. Clear liquid diet now, n.p.o. after midnight Assessment and plan: -- Acute cholecystitis General surgeon consulted,, ordered abdominal ultrasound No plan for immediate surgery now may be next week Wednesday or Wednesday Initiate clear liquid diet, empiric antibiotics and IV fluid hydration -- Morbid obesity, need diet and exercise education on discharge when clinically stable -- History of seizure disorder, will resume home antiseizure medicine -- History of sleep apnea, CPAP at bedtime as needed, need sleep study as outpatient --Malignant/uncontrolled hypertension, placed on clonidine patch and IV hydralazine. Monitor BP -- Elevated lactic acid, due to acute cholecystitis and dehydration. Continue IV fluid hydration and trend lactic acid -- DVT Prophylaxis: Sequential compression device -- Code Status: Full code Subjective Date of service: 01/04/22 Interval history: Patient seen and examined. Medical records and medication list reviewed. No acute event overnight noted by the RN. Patient complains of abdominal pain but much improved than admission Plan for surgery probably next week Wednesday or Wednesday Discussed plan of care at bedside with patient. Objective - Exam Narrative Exam: GENERAL: well-developed and morbidly obese -[place] male lying on bed appeared to be in no discomfort. HEENT: Normocephalic. Atraumatic. No conjunctival congestion or icterus. Patient has moist mucous membranes. NECK: Supple. Trachea midline. CHEST/LUNGS: Clear to auscultated bilaterally, breathing nonlabored. No wheezes crackles or rhonchi. HEART/CARDIOVASCULAR: Regular in rate and rhythm. S1 and S2 positive. ABDOMEN: Abdomen is soft, mild right upper quadrant tenderness. Patient has normal bowel sounds. SKIN: There is no rash. Warm and dry. NEURO: No focal motor deficit. Follows command. MUSCULOSKELETAL: No joint effusion or tenderness. EXTRIMITY: No edema, no cyanosis or clubbing. PSYCH: Cooperative. - Constitutional Vitals: Vital Signs - 12hr 01/04/22 01/04/22 01/04/22 02:00 03:22 08:14 Temperature 99.4 F Pulse Rate 109 H Pulse Rate [ 102 H Apical] Respiratory 18 Rate Blood Pressure 154/98 O2 Sat by Pulse 98 96 98 Oximetry - Labs CBC & Chem 7: 01/05/22 07:14 01/05/22 07:14 Labs: Abnormal lab results 01/03/22 01/04/22 01/04/22 Range/Units 11:38 05:59 05:59 WBC 11.8 H (4.5-11.0) K/mm3 RBC 5.40 H (3.65-5.03) M/mm3 Hct 45.8 H (35.5-45.6) % MCH 27 L (28-32) pg RDW 16.2 H (13.2-15.2) % [place] % (Auto) 10.1 H (0.0-7.3) % [place] # (Auto) 1.2 H (0.0-0.8) K/mm3 Seg Neutrophils % 72.4 H (40.0-70.0) % Seg Neutrophils # 8.5 H (1.8-7.7) K/mm3 BUN 7 L (9-20) mg/dL Lactic Acid 2.70 H* (0.7-2.0) mmol/L HEART Score - HEART Score Troponin: Troponin T < 0.010 ng/mL (0.00-0.029) 01/03/22 00:56
--- NOTE | 2022-01-04 15:03 | Progress Note ---
Assessment and Plan - Patient Problems (1) Acute cholecystitis Current Visit: Yes Status: Acute Plan to address problem: 1) NPO after MN in case Dr. Arizmendi decides to take the pt to the OR 2) CBC & CMP in the am Subjective Date of service: 01/04/22 Patient Reports: Positive: no new complaints, pain is less, tolerating liquids well Objective Vital Signs - 12hr 01/04/22 01/04/22 01/04/22 03:22 08:14 12:32 Temperature 99.4 F 98.5 F Pulse Rate 109 H 109 H Respiratory 18 24 Rate Blood Pressure 154/98 149/93 O2 Sat by Pulse 96 98 96 Oximetry - Abdomen soft, bowel sounds hypoactive, not rebound, not guarding (Minimally TTP in the RUQ) - Labs 01/04/22 05:59 01/04/22 05:59 Diabetes panel 01/04/22 Range/Units 05:59 Sodium 138 (137-145) mmol/L Potassium 4.4 (3.6-5.0) mmol/L Chloride 100.0 (98-107) mmol/L Carbon Dioxide 29 (22-30) mmol/L BUN 7 L (9-20) mg/dL Creatinine 0.8 (0.8-1.3) mg/dL Glucose 89 (75-100) mg/dL Calcium 9.2 (8.4-10.2) mg/dL Calcium panel 01/04/22 Range/Units 05:59 Calcium 9.2 (8.4-10.2) mg/dL Pituitary panel 01/04/22 Range/Units 05:59 Sodium 138 (137-145) mmol/L Potassium 4.4 (3.6-5.0) mmol/L Chloride 100.0 (98-107) mmol/L Carbon Dioxide 29 (22-30) mmol/L BUN 7 L (9-20) mg/dL Creatinine 0.8 (0.8-1.3) mg/dL Glucose 89 (75-100) mg/dL Calcium 9.2 (8.4-10.2) mg/dL Adrenal panel 01/04/22 Range/Units 05:59 Sodium 138 (137-145) mmol/L Potassium 4.4 (3.6-5.0) mmol/L Chloride 100.0 (98-107) mmol/L Carbon Dioxide 29 (22-30) mmol/L BUN 7 L (9-20) mg/dL Creatinine 0.8 (0.8-1.3) mg/dL Glucose 89 (75-100) mg/dL Calcium 9.2 (8.4-10.2) mg/dL - Imaging CT scan - abdomen: report reviewed CT scan - pelvis: report reviewed US - abdomen: report reviewed
[2022-01-04] MEDS: ENOXAPARIN 40 MG/0.4 ML INJ SUB-Q SCH (22:24)
[2022-01-05] MEDS: PIPERACILLIN/TAZOBACTAM 3.375 3.375 GM/50 ML BAG IV SCH ×3 (01:10→18:22)
[2022-01-05] MEDS: D5W/0.9% NACL 1,000 ML IV SCH ×2 (01:11→22:07)
[2022-01-05 09:05] LABS: Basophils % (Auto) 0.4 % (0.0-1.8); Eosinophils # (Auto) 0.3 K/mm3 (0.0-0.4); Eosinophils % (Auto) 3.2 % (0.0-4.3); Hematocrit 44.2 % (35.5-45.6); Hemoglobin 14.4 gm/dl (11.8-15.2); Lymphocytes # (Auto) 2.1 K/mm3 (1.2-5.4); Lymphocytes % (Auto) 19.3 % (13.4-35.0); Mean Corpuscular HGB Conc 33 % (32-34); Mean Corpuscular Volume 84 fl (84-94); Platelet Count 270 K/mm3 (140-440); Red Blood Count 5.26 M/mm3 (3.65-5.03); Red Cell Distribution Width 15.8 % (13.2-15.2)
[2022-01-05 09:14] LABS: Alanine Aminotransferase 29 units/L (7-56); Albumin 3.6 g/dL (3.9-5); BUN/Creatinine Ratio 8; Blood Urea Nitrogen 7 mg/dL (9-20); Calcium 9.2 mg/dL (8.4-10.2); Hemolysis Index 1
[2022-01-05] MEDS: amLODIPine 10 MG TAB PO SCH (09:25)
[2022-01-05] MEDS ORDERED: LIDOCAINE (2%) 20 MG/1 ML VIAL 20 ML MDV INFILTRATI ONE ×2 (13:17→14:58)
[2022-01-05] MEDS ORDERED: BUPIVACAINE-EPINEPHRINE/PF 0.5%-1:200,000 (30 ML) VIAL INFILTRATI ONE ×3 (13:18→14:57)
--- NOTE | 2022-01-05 13:23 | Anesthesia Day of Surgery ---
Anesthesia Day of Surgery - Day of Surgery Patient Examined: Yes Patient H&P Reviewed: Yes Patient is NPO: Yes
--- NOTE | 2022-01-05 13:27 | Anesthesia Consultation ---
Anesthesia Consult and Med Hx Date of service: 01/05/22 - Airway Anesthetic Teeth Evaluation: Good ROM Head & Neck: Adequate Mental/Hyoid Distance: Adequate Mallampati Class: Class I Intubation Access Assessment: Probably Good - Pulmonary Exam CTA: Yes - Cardiac Exam Cardiac Exam: RRR - Pre-Operative Health Status ASA Pre-Surgery Classification: ASA3 Proposed Anesthetic Plan: General - Pulmonary Hx Smoking: Yes Hx Asthma: Yes Hx Pneumonia: No Hx Sleep Apnea: Yes (no cpap use. DYLON to be reevaluated) - Cardiovascular System Hx Hypertension: Yes (admitted with uncontrolled HTN. currently controlled with meds) - Central Nervous System Hx Seizures: Yes (recently diagnosed (09/2021) last sz (12/26/2021)) - Other Systems Hx Obesity: Yes
[2022-01-05] MEDS ORDERED: MIDAZOLAM 2 MG/2 ML INJ ONE (13:31)
[2022-01-05] MEDS ORDERED: propofoL 200 MG/20 ML VIAL IV ONE (13:31)
[2022-01-05] MEDS ORDERED: HYDROmorphone 0.5 MG/0.5 ML INJ ONE (13:31)
[2022-01-05] MEDS ORDERED: ROCURONIUM 50 MG/5 ML INJ IV ONE (13:32)
[2022-01-05] MEDS ORDERED: LIDOCAINE MPF (2%) 20 MG/1 ML VIAL 5 ML ONE (13:42)
[2022-01-05] MEDS ORDERED: SUCCINYLCHOLINE CHLORIDE 200 MG/10 ML INJ MDV ONE (13:42)
[2022-01-05] MEDS ORDERED: fentaNYL 100 MCG/2 ML INJ ONE (14:19)
[2022-01-05] MEDS ORDERED: dexAMETHasone 20 MG/5 ML VIAL ONE (14:30)
[2022-01-05] MEDS ORDERED: ONDANSETRON 4 MG/2 ML INJ ONE (14:30)
[2022-01-05] MEDS ORDERED: ceFAZolin 1 GM VIAL ONE (14:30)
[2022-01-05] MEDS ORDERED: HYDROmorphone 1 MG/1 ML INJ ONE (14:33)
--- NOTE | 2022-01-05 14:47 | Progress Note ---
Assessment and Plan 31-year-old -[place] male with past medical history of seizure disorder, morbid obesity, sleep apnea and hypertension presents to the emergency room with complaining of abdominal pain. Upon arrival in the emergency room blood pressure was quite elevated with systolic in the 200s and diastolic in the low 100s. CT abdomen and pelvis/ultrasound of the abdomen was consistent with acute cholecystitis. General surgeon on-call has been consulted by the ER physician and patient was admitted for further Mx. 11/02: General surgery consulted, continue empiric antibiotics and IV fluid hydration. Placed on clonidine and IV hydralazine for BP control. Start on clear liquid diet, surgery being planned for next week once BP stabilized. 11/03: Continue medical management, plan for surgery tomorrow, continue IV fluid hydration and antibiotics. Clear liquid diet now, n.p.o. after midnight 11/04: patient is NPO, waiting for surgery, cont iv fluid, follow clinically, dc planning per surgery. Assessment and plan: -- Acute cholecystitis General surgeon consulted,, ordered abdominal ultrasound plan for surgery today Initiate clear liquid diet, empiric antibiotics and IV fluid hydration -- Morbid obesity, need diet and exercise education on discharge when clinically stable -- History of seizure disorder, will resume home antiseizure medicine -- History of sleep apnea, CPAP at bedtime as needed, need sleep study as outpatient --Malignant/uncontrolled hypertension, placed on clonidine patch and IV hydralazine. Monitor BP -- Elevated lactic acid, due to acute cholecystitis and dehydration. Continue IV fluid hydration and trend lactic acid -- DVT Prophylaxis: Sequential compression device -- Code Status: Full code Subjective Date of service: 01/05/22 Interval history: Patient seen and examined. Medical records and medication list reviewed. No acute event overnight noted by the RN. Patient abdominal pain but much improved than admission Plan for surgery probably today Discussed plan of care at bedside with patient. Objective - Exam Narrative Exam: GENERAL: well-developed and morbidly obese -[place] male lying on bed appeared to be in no discomfort. HEENT: Normocephalic. Atraumatic. No conjunctival congestion or icterus. Pat ient has moist mucous membranes. NECK: Supple. Trachea midline. CHEST/LUNGS: Clear to auscultated bilaterally, breathing nonlabored. No wheezes crackles or rhonchi. HEART/CARDIOVASCULAR: Regular in rate and rhythm. S1 and S2 positive. ABDOMEN: Abdomen is soft, mild right upper quadrant tenderness. Patient has normal bowel sounds. SKIN: There is no rash. Warm and dry. NEURO: No focal motor deficit. Follows command. MUSCULOSKELETAL: No joint effusion or tenderness. EXTRIMITY: No edema, no cyanosis or clubbing. PSYCH: Cooperative. - Constitutional Vitals: Vital Signs - 12hr 01/05/22 01/05/22 01/05/22 05:15 08:00 09:25 Temperature 100.0 F H Pulse Rate 101 H 78 Respiratory 22 20 Rate Respiratory Rate [Abdomen] Blood Pressure 160/103 154/79 O2 Sat by Pulse 92 98 Oximetry 01/05/22 01/05/22 10:00 11:11 Temperature Pulse Rate Respiratory 18 Rate Respiratory 20 Rate [Abdomen] Blood Pressure O2 Sat by Pulse Oximetry - Labs CBC & Chem 7: 01/05/22 07:14 01/05/22 07:14 Labs: Abnormal lab results 01/05/22 01/05/22 Range/Units 07:14 07:14 RBC 5.26 H (3.65-5.03) M/mm3 MCH 27 L (28-32) pg RDW 15.8 H (13.2-15.2) % [place] % (Auto) 9.0 H (0.0-7.3) % [place] # (Auto) 1.0 H (0.0-0.8) K/mm3 BUN 7 L (9-20) mg/dL Total Protein 6.0 L (6.3-8.2) g/dL Albumin 3.6 L (3.9-5) g/dL HEART Score - HEART Score Troponin: Troponin T < 0.010 ng/mL (0.00-0.029) 01/03/22 00:56
[2022-01-05] MEDS ORDERED: SODIUM CHLORIDE 0.9% IRRIG SOLN 2000 ML IR ONE (14:58)
[2022-01-05] MEDS ORDERED: SODIUM CHLORIDE 0.9% IRR 1,500 ML BOTTLE IR ONE (14:58)
[2022-01-05] MEDS ORDERED: SUGAMMADEX SODIUM 200 MG/2 ML VIAL IV ONE (15:19)
[2022-01-05] MEDS ORDERED: KETOROLAC 30 MG/1 ML INJ ONE (15:20)
--- NOTE | 2022-01-05 16:15 | Operative Report ---
Operative Report Operative Report: Date: 06/07/2021 Preop diagnosis: cholecystitis with cholelithiasis Postop diagnosis: same Procedure: Laparoscopic cholecystectomy without cholangiogram Surgeon: Dr. Arizmendi Wrecker Operator: Dr. Qureshi Anesthesia type: General endotracheal anesthesia Estimated blood loss: 100 cc Specimen: Gallbladder and stone Procedure: Patient is taken to the OR and after timeout are completed the abdomen was prepped with ChloraPrep and draped in a sterile fashion. A 8 mm incision is made in the right supraumbilical area. A varies needle is used to gain access to the peritoneal cavity. Abdomen is insufflated with CO2.A 5 mm Visiport is used to gain access to the peritoneal cavity. 2 additional 5 mm ports were placed one in the right lateral subcostal position and one in a right upper quadrant midclavicular position. In the subxiphoid position a 12 mm port is placed. Gallbladder graspers are used through the right subcostal ports. Adhesions over the top of the gallbladder are noted. These are sharply divided with harmonic scalpel. The gallbladder is decompressed with a needle aspirator. The gallbladder was retracted superiorly anteriorly and laterally. The peritoneal reflection and adventitia are dissected with a cautery hook and the harmonic scalpel to expose the cystic duct and cystic artery as well as the cystic cleft. Critical view of safety is demonstrated. The cystic artery is clipped and divided. A clip was placed on the cystic duct at its junction with the gallbladder. 3 clips were placed on the distal cystic duct. The cystic duct was then divided. The gallbladder was dissected off the gallbladder fossa It was then extracted after being placed in a specimen bag through the subxiphoid port. Hemostasis is good as and is improved with the electrocautery hook and Surgicel gauze. The right upper quadrant irrigated with copious amounts of saline and then aspirated. Sponge and needle counts are noted to be correct at this time. A [employer] system was used to close the subxiphoid incision with an 0 Vicryl suture. The skin is closed with 4-0 Monocryl and Dermabond. Patient tolerated procedure well.
--- NOTE | 2022-01-05 18:00 | XRay Report ---
CHEST 1 VIEW INDICATION / CLINICAL INFORMATION: Chest pain FINDINGS: SUPPORT DEVICES: None. HEART / MEDIASTINUM: No significant abnormality. LUNGS / PLEURA: Significant bilateral cardiopulmonary edema/bilateral pulmonary opacities. Signer Name: Jensen Easley MD Signed: 01/05/2022 5:55 PM Workstation Name: [id number]
--- NOTE | 2022-01-05 18:16 | Post Anesthesia Evaluation ---
- Post Anesthesia Evaluation Patient Participated: Yes Airway Patent: Yes Stable Respiratory Function: Yes (Pulmonary edema) Nausea/Vomiting: No Temp > 96.8F: Yes Pain Manageable: Yes Adequeate Hydration: Yes Anesthesia Complications: Yes (Pulmonary edema) Block Receding Appropriately: Not Applicable Patient on Ventilator: No
[2022-01-05] MEDS: ENOXAPARIN 40 MG/0.4 ML INJ SUB-Q SCH (22:07)
[2022-01-06] MEDS: MORPHINE 4 MG/1 ML INJ IV PRN ×2 (00:27→10:28)
[2022-01-06] MEDS: PIPERACILLIN/TAZOBACTAM 3.375 3.375 GM/50 ML BAG IV SCH ×2 (01:11→10:32)
--- NOTE | 2022-01-06 08:41 | Progress Note ---
Assessment and Plan 31-year-old -[place] male with past medical history of seizure disorder and hypertension presents to the emergency room today complaining of abdominal pain. Abdominal pain is more in the epigastric region and also in the right upp er abdomen. He has had some associated nausea and vomiting but denies any diarrhea. Patient denies any fever or chills, denies any headache or dizziness and denies any diaphoresis. Pt sp LC surgically cleared for DC. Pt htn, and possible Aortic dissection harini Choe. Subjective Date of service: 01/06/22 Patient Reports: Positive: no new complaints, feels better, tolerating a regular diet Narrative: Pt sp lap choole. OK to dc today. However pt also with poorly controlled htn and may have a history of what he called a whole in the Aorta. HARINI Choe. Will possible consult Dr. Fleming. Objective Vital Signs - 12hr 01/05/22 01/05/22 01/06/22 21:15 22:00 00:23 Temperature 97.6 F Pulse Rate 87 Respiratory 18 Rate Respiratory 18 Rate [Abdomen] Blood Pressure 134/68 O2 Sat by Pulse 95 99 Oximetry 01/06/22 01/06/22 01/06/22 00:27 00:57 04:35 Temperature 98.4 F Pulse Rate 79 Respiratory 18 18 18 Rate Respiratory Rate [Abdomen] Blood Pressure 131/81 O2 Sat by Pulse 95 Oximetry 01/06/22 07:52 Temperature Pulse Rate Respiratory Rate Respiratory Rate [Abdomen] Blood Pressure O2 Sat by Pulse 97 Oximetry - Labs 01/05/22 07:14 01/05/22 07:14 Diabetes panel 01/05/22 Range/Units 07:14 Sodium 141 (137-145) mmol/L Potassium 4.5 (3.6-5.0) mmol/L Chloride 100.8 (98-107) mmol/L Carbon Dioxide 29 (22-30) mmol/L BUN 7 L (9-20) mg/dL Creatinine 0.9 (0.8-1.3) mg/dL Glucose 82 (75-100) mg/dL Calcium 9.2 (8.4-10.2) mg/dL AST 23 (5-40) units/L ALT 29 (7-56) units/L Alkaline Phosphatase 90 (35-129) units/L Total Protein 6.0 L (6.3-8.2) g/dL Albumin 3.6 L (3.9-5) g/dL Calcium panel 01/05/22 Range/Units 07:14 Calcium 9.2 (8.4-10.2) mg/dL Albumin 3.6 L (3.9-5) g/dL Pituitary panel 01/05/22 Range/Units 07:14 Sodium 141 (137-145) mmol/L Potassium 4.5 (3.6-5.0) mmol/L Chloride 100.8 (98-107) mmol/L Carbon Dioxide 29 (22-30) mmol/L BUN 7 L (9-20) mg/dL Creatinine 0.9 (0.8-1.3) mg/dL Glucose 82 (75-100) mg/dL Calcium 9.2 (8.4-10.2) mg/dL Adrenal panel 01/05/22 Range/Units 07:14 Sodium 141 (137-145) mmol/L Potassium 4.5 (3.6-5.0) mmol/L Chloride 100.8 (98-107) mmol/L Carbon Dioxide 29 (22-30) mmol/L BUN 7 L (9-20) mg/dL Creatinine 0.9 (0.8-1.3) mg/dL Glucose 82 (75-100) mg/dL Calcium 9.2 (8.4-10.2) mg/dL Total Bilirubin 0.90 (0.1-1.2) mg/dL AST 23 (5-40) units/L ALT 29 (7-56) units/L Alkaline Phosphatase 90 (35-129) units/L Total Protein 6.0 L (6.3-8.2) g/dL Albumin 3.6 L (3.9-5) g/dL
[2022-01-06] MEDS: D5W/0.9% NACL 1,000 ML IV SCH (10:29)
[2022-01-06] MEDS: amLODIPine 10 MG TAB PO SCH (10:35)
[2022-01-06 13:30] VITALS: BP 151/84
--- NOTE | 2022-01-06 14:19 | Discharge Summary ---
Providers - Providers Date of Admission: 01/03/22 02:52 Date of discharge: 01/06/22 Attending physician: MONTRELL MEHTA MD 01/03/22 02:21 Consult to Physician [CONS] Routine Comment: Consulting Provider: CADE ARIZMENDI Physician Instructions: Reason For Exam: ACUTE CHOLECYSTITIS Primary care physician: TAMARA BREWER Hospitalization Reason for admission: abdominal pain Condition: Stable Hospital course: HPI: 31-year-old -[place] male with past medical history of seizure disorder, morbid obesity, sleep apnea and hypertension presents to the emergency room with complaining of abdominal pain. Upon arrival in the emergency room blood pressure was quite elevated with systolic in the 200s and diastolic in the low 100s. CT abdomen and pelvis/ultrasound of the abdomen was consistent with acute cholecystitis. General surgeon on-call has been consulted by the ER physician and patient was admitted for further Mx. Hospital course: 11/02: General surgery consulted, continue empiric antibiotics and IV fluid hydration. Placed on clonidine and IV hydralazine for BP control. Start on clear liquid diet, surgery being planned for next week once BP stabilized. 11/03: Continue medical management, plan for surgery tomorrow, continue IV fluid hydration and antibiotics. Clear liquid diet now, n.p.o. after midnight 11/04: patient is NPO, waiting for surgery, cont iv fluid, follow clinically, dc planning per surgery. 11/05: S/p lap cholecystectomy. OK to discharge today per Dr. Arizmendi. However, There is some concern regarding patient reported history of "aortic tear". I discussed at length with the patient regarding this. He states that he had similar abdominal pain as this admission several months prior when he lived in [place]. At the time when he was evaluated at the ER, the possibility of aortic dissection was discussed. He was evaluated with CT angiogram of the chest and no aneurysm, dissection, or structural damage of Aorta was identified. He states he has been asymptomatic up until this admission when he was admitted for abdoimnal pain symptomology. Given his history given, no prior history of smoking, and young age, I doubt Aortic dissection was etiology of abdominal pain. The patient does have poorly controlled hypertension for which he will be given rx on discharge. Discharge Rx medications include amlodipine, Catapres patch, carvedilol, valsartan, Percocet. He was advised to follow up as an outpatient with Dr. Arizmendi as well as with his primary care physician. Assessment: -- Acute cholecystitis General surgeon consulted,, ordered abdominal ultrasound plan for surgery today Initiate clear liquid diet, empiric antibiotics and IV fluid hydration -- SIRS POA, due to acute cholecystitis and dehydration. Continue IV fluid hydration and trend lactic acid - tachycardic, leukocytosis, latic acid 2.7 -- Morbid obesity, need diet and exercise education on discharge when clinically stable -- History of seizure disorder, will resume home antiseizure medicine -- History of sleep apnea, CPAP at bedtime as needed, need sleep study as outpatient --Hypertensive emergency, placed on clonidine patch and IV hydralazine. Monitor BP Disposition: HOME / SELF CARE / HOMELESS Final Discharge Diagnosis (Prints w/discharge instructions): Acute cholecystitis Time spent for discharge: 35 Core Measure Documentation - Palliative Care Palliative Care/ Comfort Measures: Not Applicable - Core Measures Any of the following diagnoses?: none Exam - Physical Exam Narrative exam: Physical Exam: VITAL SIGNS: Reviewed. GENERAL: The patient appears normally developed, Vital signs as documented. Elevated BMI 51.3 HEAD: No signs of head trauma. EYES: Pupils are equal. Extraocular motions intact. EARS: Hearing grossly intact. MOUTH: Oropharynx is normal. NECK: No adenopathy, no JVD. CHEST: Chest with clear breath sounds bilaterally. No wheezes, rales, or rhonchi. CARDIAC: Regular rate and rhythm. S1 and S2, without murmurs, gallops, or rubs. VASCULAR: No Edema. Peripheral pulses normal and equal in all extremities. ABDOMEN: Incision scars from laparoscopy well-healed soft, non tender and non distended. No rebound or guarding, and no masses palpated. Bowel Sounds nor mal. MUSCULOSKELETAL: Good range of motion of all major joints. Extremities without clubbing, cyanosis or edema. NEUROLOGIC EXAM: Alert and oriented x 4. no focal sensory or strength deficits. PSYCHIATRIC: Mood normal. SKIN: detail exam as documented in skin assessment - Constitutional Vitals: Temp Pulse Resp BP Pulse Ox 98.4 F 102 H 20 151/84 92 01/06/22 12:36 01/06/22 12:36 01/06/22 12:36 01/06/22 12:36 01/06/22 12:36 Plan Follow up with: TAMARA BREWER MD [Primary Care Provider] - 3-5 Days
--- NOTE | 2022-01-06 15:26 | Post Anesthesia Evaluation ---
- Post Anesthesia Evaluation Patient Participated: Yes Airway Patent: Yes (no frothy spitum) Stable Respiratory Function: Yes (no SOB with walking) Nausea/Vomiting: No Temp > 96.8F: Yes Pain Manageable: Yes Adequeate Hydration: Yes Anesthesia Complications: Yes (pulmonary edema, clinically asymptomatic) Block Receding Appropriately: Not Applicable Patient on Ventilator: No Other Comments: night spent well, no BiPAP, intermittent O2 mask, ambulates, ready for discharge
== END 2022-01-06 18:24 | disposition home or self-care (01) | DRG 418 ==
LOC: ED 20:28 → 3A 01-03 02:52
PROVIDERS: ADMIT Internal Medicine Geriatric Medicine; ATTEND Internal Medicine
PROC: 0FT44ZZ Resection of Gallbladder, Percutaneous Endoscopic Approach (ICD-10-PCS; principal; 2022-01-05)
DX: K80.00 Calculus of gallbladder with acute cholecystitis without obstruction (principal); E87.2 Acidosis; K35.80 Unspecified acute appendicitis; R65.10 Systemic inflammatory response syndrome (SIRS) of non-infectious origin without acute organ dysfunction; Z68.43 Body mass index [BMI] 50.0-59.9, adult; E66.01 Morbid (severe) obesity due to excess calories; I10 Essential (primary) hypertension; G40.909 Epilepsy, unspecified, not intractable, without status epilepticus; G47.30 Sleep apnea, unspecified; F17.200 Nicotine dependence, unspecified, uncomplicated; K76.0 Fatty (change of) liver, not elsewhere classified; I16.0 Hypertensive urgency; J45.909 Unspecified asthma, uncomplicated
CPT/HCPCS: 36415; 71045; 74177; 76705; 80048; 80053; 80307; 81001; 82140; 82962; 83690; 83735; 84484; 85025; 85027; 88304; 94760; 96365; 96366; 96375; 99285; G0378; J3490; J0330; J0360; J0690; J1100; J1170; J1650; J1885; J2250; J2270; J2405; J2543; J2704; J3010; J7030; J7042; Q9967